=== PATIENT | female | born 1980 | race Caucasian/White ===

== ENCOUNTER 2017-02-21 12:13 | Emergency (ER) | payer OTHER ==
[2017-02-21] MEDS ORDERED: Morphine INJ* 4 MG/ML 1 ML SYRINGE IV ONE (14:44)
[2017-02-21] MEDS ORDERED: NS 0.9% 1000 ML* 1,000 ML IV ONE ×2 (14:44→16:06)
[2017-02-21] MEDS ORDERED: Ondansetron INJ* 2 MG/ML VIAL IV ONE (14:44)
[2017-02-21 15:47] LABS: Hematocrit 40 % (35-47); Hemoglobin 13.2 g/dl (12.0-16.0); Mean Corpuscular HGB Conc 33 g/dl (31-36); Mean Corpuscular Hemoglobin 30 pg (27-31); Mean Corpuscular Volume 90 fL (80-97); Mean Platelet Volume 8 um3 (7.4-10.4); Red Blood Count 4.42 10^6/ul (4.0-5.4); Red Cell Distribution Width 14 % (10.5-15); White Blood Count 9.4 10^3/ul (3.5-10.8)
[2017-02-21 15:57] LABS: ALT 11 U/L (7-52); AST 16 U/L (13-39); Alkaline Phosphatase 57 U/L (34-104); Anion Gap 5 mmol/L (2-11); BUN/Creatinine Ratio 10.5 (8-20); Blood Urea Nitrogen 8 mg/dL (6-24); CO2 Carbon Dioxide 27 mmol/L (22-32); Chloride 105 mmol/L (101-111); EGFR African American 110.7 (>60); EGFR Non-African American 86.1 (>60); Globulin 2.9 g/dL (2-4); Glucose 93 mg/dL (70-100); Potassium 3.5 mmol/L (3.5-5.0); Sodium 137 mmol/L (133-145); Total Protein 6.9 g/dL (6.4-8.9)
[2017-02-21] MEDS ORDERED: Iohexol 350* (CONTRAST) 500 ML MDV IV ONE (16:08)
--- NOTE | 2017-02-21 16:39 | RAD ---
Indication: Headaches, neck pain. CT of the brain was performed without IV contrast. Ventricular structures are midline. No midline shift is noted. The extraction spaces are unremarkable. There is no evidence of intracranial mass or hemorrhage. No other high or low density lesions are identified. Mastoid air cells and paranasal sinuses are otherwise unremarkable. IMPRESSION: No intracranial mass or hemorrhage is noted.
--- NOTE | 2017-02-21 16:46 | RAD ---
Indication: Neck pain, headaches. Contrast: Administered 80.0 ml of OMNIPAQUE 350 mgi/ml CTA of the neck and head was performed after IV contrast administration. Coronal and sagittal reconstructed images were obtained. The origins of the aortic arch demonstrates limited evaluation of the origin due to left sided intravenous injection. The visualized portions of the right common carotid artery, left common carotid artery are patent. No evidence of atherosclerotic plaque is noted in the carotid bulbs. There is some irregularity in the left internal carotid artery likely due to artifact from dental fillings. No evidence of carotid artery dissection is noted. Vertebral arteries are patent and are of normal caliber with no evidence of vertebral artery dissection. The intracranial carotid arteries are unremarkable. CTA of the head demonstrates no aneurysmal dilatation. The internal carotid arteries demonstrates normal bifurcation with no evidence of branch occlusion of the anterior or middle cerebral arteries. No evidence of aneurysmal dilatation is noted. The basilar artery, posterior cerebral arteries are patent with no evidence of aneurysmal dilatation or branch occlusion. IMPRESSION: LIMITED EVALUATION OF THE ORIGINS OF THE GREAT VESSEL DUE TO LEFT SIDED INTRAVENOUS INJECTION. NO EVIDENCE OF CALCIFIC PLAQUE IS NOTED IN THE CAROTID BULB. THE PROXIMAL LEFT INTERNAL CAROTID ARTERY IS LIMITED DUE TO ARTIFACT FROM DENTAL FILLINGS. NO EVIDENCE OF CAROTID ARTERY DISSECTION OR ANEURYSMAL DILATATION IS NOTED IN THE NECK OR INTRACRANIAL VESSELS. THE POSTERIOR CIRCULATION IS ALSO PATENT.
[2017-02-21] MEDS ORDERED: Ketorolac INJ* 30 MG/ML 1 ML VIAL IV ONE (18:01)
[2017-02-21] MEDS ORDERED: Metoclopramide IV* 5 MG/ML 2 ML VIAL IV ONE (18:01)
[2017-02-21] MEDS ORDERED: diPHENhydraMINE IV* 50 MG/ML 1 ml VIAL (BENADRYL) IV ONE (18:01)
[2017-02-21] MEDS ORDERED: Ondansetron ODT TAB* 4 MG PO ONE (19:33)
--- NOTE | 2017-02-21 19:38 | ED ---
Cynthia Dawson Auryana, scribed for Jocelyn Obrien MD on 02/21/17 at 1522 . Headache - HPI Summary HPI Summary: 36 year old female presents with intractable headache. Patient reports that the episode states yesterday morning and is located behind the eyes and at the sinus area. She also has lower lateral neck pain and states that when she closes her eyes, she sees "stars". She reports that she was unable to sleep last night - had chills and diaphoresis throughout the night. She denies any diplopia or any blurry vision. Advil, xanax, and Saira mildly improvement the pain - but returned shortly after. She denies any control use. Patient states that she doesn't believe that her symptoms are sinus related. PMHx is significant for ear drum rupture secondary to severe sinus infection ( resolved now) and seasonal allergies. She is currently 6 months post . No family history of headaches, migraines, or subarachnoid hemorrhage. SHx is significant for occasional alcohol but denies ay tobacco or recreational drug use. - History Of Current Complaint Chief Complaint: EDHeadache Stated Complaint: HEADACHE/SENT FROM [facility] Time Seen by Provider: 02/21/17 14:15 Hx Obtained From: Patient Hx Last Menstrual Period: 6 months post Onset/Duration: Gradual Onset, Started days ago Initially Headache Was: Moderate Currently Pain Is: Mild, Moderate Timing: Constant Location of Headache: Other: - behind the eyes, and at the sinus Allevating Factors: Other (Noted In Comments) - mildly by Advil, xanax, and saira Associated Signs And Symptoms: Neck Pain, Visual Changes - "seeing stars" when closing her eyes., Other (Noted In Comments) - chills, diaphoresis - Allergies/Home Medications Allergies/Adverse Reactions: Allergies Allergy/AdvReac Type Severity Reaction Status Date / Time No Known Allergies Allergy Verified 02/21/17 12:24 PMH/Surg Hx/FS Hx/Imm Hx Infectious Disease History: No Infectious Disease History: Denies: Traveled Outside the [place] in Last 30 Days Review of Systems Positive: Chills, Skin Diaphoresis. Negative: Fever Positive: Other - closes her eyes, she sees "stars". Negative: Diplopia ENT: Negative Cardiovascular: Negative Respiratory: Negative Gastrointestinal: Negative Genitourinary: Negative Positive: Arthralgia - left lateral neck pain Skin: Negative Positive: Headache Psychological: Normal All Other Systems Reviewed And Are Negative: Yes Physical Exam - Summary Physical Exam Summary: General: Well appearing, no pain distress Skin: Warm, Skin Color Reflects Adequate Perfusion, Dry Eyes: EOMI, SANDRA ENT: Pharynx normal, TMs normal. No fluid behind the TMs. No sinus tenderness. Neck: Supple, nontender Respiratory: CTA, breath sounds present, no rhonchi, no wheezes, no rales Cardiovascular: RRR, no murmur, no rub, no gallop Abdomen: Soft, nontender, Non-distended, no guarding, no rebound Bowel: Present Musculoskeletal: ALEXUS, No edema Neuro: Sensory/motor intact, A&Ox3, CN intact 2-12 Psych: Affect/mood appropriate Triage Information Reviewed: Yes Vital Signs On Initial Exam: Initial Vitals Temp Pulse Resp BP Pulse Ox 97.8 F 64 16 115/73 100 02/21/17 12:21 02/21/17 12:21 02/21/17 12:21 02/21/17 12:21 02/21/17 12:21 Vital Signs Reviewed: Yes Diagnostics - Vital Signs Vital Signs Temp Pulse Resp BP Pulse Ox 02/21/17 12:21 97.8 F 64 16 115/73 100 - Laboratory Lab Results: Lab Results 02/21/17 02/21/17 02/21/17 Range/Units 15:10 15:10 17:40 WBC 9.4 (3.5-10.8) 10^3/ul RBC 4.42 (4.0-5.4) 10^6/ul Hgb 13.2 (12.0-16.0) g/dl Hct 40 (35-47) % MCV 90 (80-97) fL MCH 30 (27-31) pg MCHC 33 (31-36) g/dl RDW 14 (10.5-15) % Plt Count 209 (150-450) 10^3/ul MPV 8 (7.4-10.4) um3 Neut % (Auto) 59.8 (38-83) % Lymph % (Auto) 30.7 (25-47) % [place] % (Auto) 7.9 (1-9) % Eos % (Auto) 0.8 (0-6) % Baso % (Auto) 0.8 (0-2) % Absolute Neuts (auto) 5.6 (1.5-7.7) 10^3/ul Absolute Lymphs (auto) 2.9 (1.0-4.8) 10^3/ul Absolute Monos (auto) 0.7 (0-0.8) 10^3/ul Absolute Eos (auto) 0.1 (0-0.6) 10^3/ul Absolute Basos (auto) 0.1 (0-0.2) 10^3/ul Absolute Nucleated RBC 0 10^3/ul Nucleated RBC % 0 Carbon Monoxide Screen <3.5 (<3.5) % Sodium 137 (133-145) mmol/L Potassium 3.5 (3.5-5.0) mmol/L Chloride 105 (101-111) mmol/L Carbon Dioxide 27 (22-32) mmol/L Anion Gap 5 (2-11) mmol/L BUN 8 (6-24) mg/dL Creatinine 0.76 (0.51-0.95) mg/dL Est GFR ( Amer) 110.7 (>60) Est GFR (Non-Af Amer) 86.1 (>60) BUN/Creatinine Ratio 10.5 (8-20) Glucose 93 (70-100) mg/dL Calcium 9.0 (8.6-10.3) mg/dL Total Bilirubin 1.00 (0.2-1.0) mg/dL AST 16 (13-39) U/L ALT 11 (7-52) U/L Alkaline Phosphatase 57 (34-104) U/L Total Protein 6.9 (6.4-8.9) g/dL Albumin 4.0 (3.2-5.2) g/dL Globulin 2.9 (2-4) g/dL Albumin/Globulin Ratio 1.4 (1-3) Beta HCG, Quant < 0.60 mIU/mL Result Diagrams: 02/21/17 15:10 02/21/17 15:10 Lab Statement: Any lab studies that have been ordered have been reviewed, and results considered in the medical decision making process. - CT BRAIN CT Interpretation: No Acute Changes CT Interpretation Completed By: Radiologist HEAD CTA CT Interpretation: Positive (See Comments) - IMPRESSION: LIMITED EVALUATION OF THE ORIGINS OF THE GREAT VESSEL DUE TO LEFT SIDED INTRAVENOUS INJECTION. NO EVIDENCE OF CALCIFIC PLAQUE IS NOTED IN THE CAROTID BULB. THE PROXIMAL LEFT INTERNAL CAROTID ARTERY IS LIMITED DUE TO ARTIFACT FROM DENTAL FILLINGS. NO EVIDENCE OF CAROTID ARTERY DISSECTION OR ANEURYSMAL DILATATION IS NOTED IN THE NECK OR INTRACRANIAL VESSELS. THE POSTERIOR CIRCULATION IS ALSO PATENT. CT Interpretation Completed By: Radiologist Headache Course/Dx - Course Assessment/Plan: Dr. Perdue reviewed the films and believes that there is no sign of venous thrombosis (17:45). Pt who is 6 mos post with melendez that started in the am and got worse with some neck pain, ct and cta were negative pain much improved with migraine meds (toradol, reglan and benadryl) home with close fu - Diagnoses Provider Diagnoses: Headache Discharge - Discharge Plan Condition: Stable Disposition: HOME Patient Education Materials: Ondansetron (By mouth), Acute Headache (ED) Referrals: Non Staff,Doctor [Primary Care Provider] - 3 Days The documentation as recorded by the Cynthia brice Auryana accurately reflects the service I personally performed and the decisions made by me, Jocelyn Obrien MD.
[2017-02-21 20:21] VITALS: BP 124/74
== END 2017-02-21 20:13 | disposition home or self-care (01) ==
LOC: ED 12:13
DX: R51 Headache (principal); M54.2 Cervicalgia
CPT/HCPCS: 36415; 70450; 70496; 70498; 80053; 82375; 84702; 85025; 99282; A9270-GY; J1200; J1885; J2270; J2405; Q9967